=== PATIENT | male | born 1985 | race Caucasian/White ===

== ENCOUNTER 2016-08-20 10:17 | Emergency (ER) | payer OTHER ==
[2016-08-20] MEDS ORDERED: cefTRIAXone 500 MG VIAL IM STA (12:07)
[2016-08-20] MEDS ORDERED: IBUPROFEN 800 MG TABLET PO STA (12:08)
[2016-08-20] MEDS ORDERED: DEXAMETHASONE 10 MG/ML VIAL PO STA (12:08)
[2016-08-20] MEDS ORDERED: LIDOCAINE-MPF 1% 5 ML VIAL ONE (12:15)
[2016-08-20] MEDS ORDERED: CHERRY SYRUP 10 ML UDC PO ONE (12:15)
[2016-08-20] MEDS ORDERED: IBUPROFEN 800 MG TABLET PO ONE (12:15)
[2016-08-20] MEDS ORDERED: DEXAMETHASONE 10 MG/ML VIAL ONE (12:15)
[2016-08-20] MEDS ORDERED: cefTRIAXone 500 MG VIAL ONE (12:15)
== END 2016-08-20 12:42 | disposition home or self-care (01) ==
DX: J03.90 Acute tonsillitis, unspecified (principal)
CPT/HCPCS: 87430; 87491; 87591; 96372; 99283; A9270